=== PATIENT | male | born 1960 | race Caucasian/White ===

== ENCOUNTER 2024-02-29 07:20 | Day surgery (SDC) | payer OTHER ==
[~2024-02-29] VITALS: Ht 180.3 cm; Wt 92.9 kg
[~2024-02-29 07:20] MED LIST: Flonase 0.05% N16 GM; PROAIR DIGIHAL90 MCG; ZYRTEC10 M1 PO
[2024-02-29] MEDS ORDERED: propofoL 50 ML IV ONE ×2 (07:24→09:16)
[2024-02-29] MEDS ORDERED: Lactated Ringer's 1,000 ML IV ONE ×2 (07:24→08:39)
[2024-02-29 10:43] VITALS: BP 133/84
== END 2024-02-29 10:05 | disposition home or self-care (01) ==
LOC: ORSCSDS 07:20
PROVIDERS: Internal Medicine Gastroenterology
PROC: 0DB58ZX Excision of Esophagus, Via Natural or Artificial Opening Endoscopic, Diagnostic (ICD-10-PCS; principal; 2024-02-29 08:45)
PROC: 0DBN8ZX Excision of Sigmoid Colon, Via Natural or Artificial Opening Endoscopic, Diagnostic (ICD-10-PCS; principal; 2024-02-29 08:45)
PROC: 0D757ZZ Dilation of Esophagus, Via Natural or Artificial Opening (ICD-10-PCS; principal; 2024-02-29 08:45)
PROC: 0DBK8ZX Excision of Ascending Colon, Via Natural or Artificial Opening Endoscopic, Diagnostic (ICD-10-PCS; principal; 2024-02-29 08:45)
PROC: 0DB68ZX Excision of Stomach, Via Natural or Artificial Opening Endoscopic, Diagnostic (ICD-10-PCS; principal; 2024-02-29 08:45)
DX: Z12.11 Encounter for screening for malignant neoplasm of colon (principal); Z86.0101 Personal history of adenomatous and serrated colon polyps; R13.10 Dysphagia, unspecified; K63.5 Polyp of colon; D12.5 Benign neoplasm of sigmoid colon; K44.9 Diaphragmatic hernia without obstruction or gangrene; K57.30 Diverticulosis of large intestine without perforation or abscess without bleeding; E78.5 Hyperlipidemia, unspecified; I10 Essential (primary) hypertension; Z79.899 Other long term (current) drug therapy
CPT/HCPCS: 88305; 88342; J2704; J7120

== ENCOUNTER → 2024-08-21 | Outpatient (CLI) | payer OTHER | LOC: LAB SHORT 08:16 → LAB 08:16 | DX: L57.0 Actinic keratosis (principal) | CPT/HCPCS: 88305 ==